=== PATIENT | female | born 1995 | race Caucasian/White ===

== ENCOUNTER 2024-11-29 12:13 | Inpatient (IN) ==
[2024-11-29] MEDS ORDERED: Lidocaine 1% VIAL 10 MG/ML 30 ML VIAL INJ PRN (13:27)
[2024-11-29] MEDS: miSOPROStol 100 mcg TAB VAGINAL ONE (14:22)
[2024-11-29 14:24] LABS: Urine Appearance Turbid; Urine Bilirubin Negative (Negative); Urine Blood Negative (Negative); Urine Color Light-Yellow; Urine Glucose Negative (Negative); Urine Ketones Negative (Negative); Urine Nitrite Negative (Negative); Urine Protein Negative (Negative); Urine Specific Gravity 1.008 (1.002-1.030); Urine Urobilinogen Negative (Negative)
[2024-11-29 14:40] LABS: Urine Bacteria 1+ /HPF (Absent); Urine Red Blood Cell Trace(0-2/hpf) /HPF (0-Trace); Urine Squamous Epithelial Cell Present /HPF (Absent); Urine Transitional Epithelial Present /HPF (Absent); Urine White Blood Cell Trace(0-5/hpf) /HPF (0-Trace)
[2024-11-29 15:02] LABS: Urine Benzodiazepine Screen None Detected (None Detect); Urine Cannabinoids Screen None Detected (None Detect); Urine Opiates Screen None Detected (None Detect)
[2024-11-29 15:17] LABS: ABS Basophils 0.1 10^3/uL (0.0-0.1); ABS Lymphocytes 1.9 10^3/uL (1.0-4.8); ABS Monocytes 0.4 10^3/uL (0.0-0.9); ABS Neutrophils 8.4 10^3/uL (1.5-7.6); Eosinophil % 0.2 %; Hematocrit 37.3 % (35-45); Hemoglobin 12.7 g/dL (11.5-14.3); Lymphocyte % 17.5 %; Mean Corpuscular Hemoglobin 29.4 pg (27-33); Mean Corpuscular Volume 86.5 fL (80-97); Mean Platelet Volume 9.1 fL (7.5-11.2); Platelet Count 237 10^3/uL (150-450); Red Blood Count 4.31 10^6/uL (3.63-4.92); Red Cell Distribution Width 13.8 % (12-17); White Blood Count 10.8 10^3/uL (3.8-11.8)
[2024-11-29 15:50] LABS: Albumin 3.7 g/dL (3.5-5.7); Creatinine, Serum 0.64 mg/dL (0.51-0.95); Globulin 2.7 g/dL (2-4); Potassium 3.7 mmol/L (3.5-5.0); Total Protein 6.4 g/dL (6.4-8.9); eGFR CKD-EPI 121.8 (>60)
[2024-11-29 15:51] LABS: Albumin/Globulin Ratio 1.4 (1-3); Total Bilirubin 0.6 mg/dL (0.2-1.0)
[2024-11-29 17:47] LABS: Urine Creatinine Concentration 95.6 mg/dL (20.00-320.00); Urine TP Creat Ratio 0.16 mg/mg
[2024-11-29] MEDS: Dinoprostone 10 MG VAG.SUPP VAGINAL ONE (18:47)
[2024-11-30] MEDS: Venlafaxine XR 75 mg PO SCH (09:43)
[2024-11-30] MEDS: miSOPROStol 100 mcg TAB VAGINAL ONE (09:45)
[2024-11-30] MEDS: miSOPROStol 100 mcg TAB PO ONE (15:40)
[2024-11-30] MEDS: Nalbuphine 10 MG/ML 1 ML VIAL IV ONE (22:33)
[2024-12-01] MEDS: miSOPROStol 100 mcg TAB PO ONE (00:03)
[2024-12-01] MEDS: Lactated Ringers 1000 ml BAG 1,000 ML IV SCH ×2 (08:57→16:15)
[2024-12-01] MEDS: Oxytocin in NS 30,000 MILLI.UNIT/500 ML BAG IV SCH (09:01)
[2024-12-01 11:00] LABS: ABS Basophils 0.1 10^3/uL (0.0-0.1); ABS Eosinophils 0.1 10^3/uL (0.0-0.5); ABS Lymphocytes 1.5 10^3/uL (1.0-4.8); ABS Monocytes 0.7 10^3/uL (0.0-0.9); ABS Neutrophils 10.8 10^3/uL (1.5-7.6); Eosinophil % 0.5 %; Hematocrit 36.6 % (35-45); Hemoglobin 12.9 g/dL (11.5-14.3); Lymphocyte % 11.4 %; Mean Corpuscular Hemoglobin 30.1 pg (27-33); Mean Corpuscular Hgb Conc 35.1 g/dL (31-36); Mean Corpuscular Volume 85.6 fL (80-97); Mean Platelet Volume 8.9 fL (7.5-11.2); Platelet Count 229 10^3/uL (150-450); Red Blood Count 4.28 10^6/uL (3.63-4.92); Red Cell Distribution Width 13.6 % (12-17); White Blood Count 13.2 10^3/uL (3.8-11.8)
[2024-12-01 11:24] LABS: Urine Creatinine Concentration 199.85 mg/dL (20.00-320.00); Urine TP Creat Ratio 0.24 mg/mg
[2024-12-01 11:40] LABS: Albumin 3.4 g/dL (3.5-5.7); Albumin/Globulin Ratio 1.4 (1-3); Calcium 8.7 mg/dL (8.6-10.3); Creatinine, Serum 0.73 mg/dL (0.51-0.95); Globulin 2.4 g/dL (2-4); Potassium 4.2 mmol/L (3.5-5.0); Total Bilirubin 0.4 mg/dL (0.2-1.0); Total Protein 5.8 g/dL (6.4-8.9); eGFR CKD-EPI 113.4 (>60)
[2024-12-01] MEDS: Lactated Ringers 1000 ml BAG 1,000 ML IV ONE ×2 (15:15→20:06)
[2024-12-01] MEDS: OBEPIDURAL (200 ML) 200 ML EPIDURAL SCH (15:20)
[2024-12-01] MEDS ORDERED: Sodium Citrate/Citric Acid LIQ 15 ML UDC PO PRN (16:50)
[2024-12-01] MEDS ORDERED: Phenylephrine 40 mcg/mL 10mL (400mcg) SYRINGE IV PUSH PRN ×2 (16:50)
[2024-12-01] MEDS: OBEPIDURAL (200 ML) 200 ML EPIDURAL ONE (19:11)
[2024-12-01] MEDS ORDERED: Glycerin ADULT 2.4 gm SUPP PR PRN (23:06)
[2024-12-01] MEDS: Lidocaine/Epinephrin 1.5%/200 5 ML AMP INJ ONE ×2 (23:20)
[2024-12-01] MEDS: Phenylephrine 40 mcg/mL 10mL (400mcg) SYRINGE ONE (23:20)
[2024-12-01] MEDS: Buffered Lidocaine 1% SYRIN 1 ml INTRADERM ONE (23:23)
[2024-12-01] MEDS: Terbutaline INJ 1 MG/ML 1 ml VIAL SUBCUT ONE (23:23)
[2024-12-01] MEDS ORDERED: Lactated Ringers 1000 ml BAG 1,000 ML IV SCH (23:45)
[2024-12-02] MEDS: Dibucaine 1% OINT 28.35 GM TUBE PR PRN (00:13)
[2024-12-02] MEDS: Witch Hazel PAD JAR TOPICAL PRN (00:13)
[2024-12-02] MEDS: Oxytocin in NS 30,000 MILLI.UNIT/500 ML BAG IV SCH (01:15)
[2024-12-02 06:32] LABS: ABS Basophils 0.2 10^3/uL (0.0-0.1); ABS Lymphocytes 1.6 10^3/uL (1.0-4.8); ABS Neutrophils 15.6 10^3/uL (1.5-7.6); ABS Nucleated RBC 0.01 10^3/ul; Eosinophil % 0.2 %; Hematocrit 32.6 % (35-45); Hemoglobin 11.4 g/dL (11.5-14.3); Lymphocyte % 8.6 %; Mean Corpuscular Hemoglobin 30.3 pg (27-33); Mean Corpuscular Hgb Conc 35.1 g/dL (31-36); Mean Corpuscular Volume 86.3 fL (80-97); Mean Platelet Volume 9.5 fL (7.5-11.2); Nucleated Red Blood Cells % 0.1 %/100WBC (0.0-0.8); Platelet Count 202 10^3/uL (150-450); Red Blood Count 3.77 10^6/uL (3.63-4.92); Red Cell Distribution Width 13.2 % (12-17); White Blood Count 18.4 10^3/uL (3.8-11.8)
[2024-12-03 07:44] VITALS: BP 105/57
== END 2024-12-03 14:06 | disposition home or self-care (01) | DRG 560 ==
LOC: MCHOBOUT 12:13 → MCHOB 13:29
PROVIDERS: ADMIT Midwife; ATTEND Advanced Practice Midwife